=== PATIENT | male | born 1980 | race Caucasian/White ===

== ENCOUNTER 2025-03-06 10:50 | Emergency (ER) | payer OTHER, SELFPAY ==
--- OUTSIDE RECORDS SUMMARY | 2024-01-20 06:05 | XMS_ITS ---
Author Organization [facility] in [place] Address [address] [place] [address] Care Team Providers Care Slip Cover Cutter Name Role Phone MADI RUSSELL MD Primary Care Provider JENNY RUSSELL Unavailable [phone] REASON FOR VISIT drainage from rectum area Medications Medication SIG (Take, Route, Fr equency, Duration) Notes Start Date End Date Status Ketoconazole 2 % 1 application Dethistler Operator ally Twice a day for 14 06/22/2023 Active Cleocin 300 MG 1 capsule Orally QID for 7 06/22/20 23 Active Encounters Encounter Location Date Provider Diagnosis [address] [address] 01/20/2024 JENNY RUSSELL Tinea cruris B35.6 Assessments Encounter Date Diagnosis (ICD Code) Assessment Notes Treatment Notes Treatment Clinical Notes Section Notes 01/20/2024 Tinea cruris (ICD-10 - B35.6) Plan Of Treatment Medication Medication Name Sig Start Date Stop Date Notes Ketoconazole 2 % 1 application Dethistler Operator ally Twice a day for 14 06/22/2023 Cleocin 300 MG 1 capsule Orally QID for 7 06/22/2023 Progress Notes * Jasbir AGUILAR CDOB:[birth year] (43 yo M)Acc No.[id number]:01/20/2024 Patient: Leland Jasbir SANTANA :1980 A ge:43 Y S ex:Male Address:[address] [place] [address] * Refills Refill Cleocin Capsule, 300 MG, Orally, 28 Capsule, 1 capsule, QID, 7 Refill Ketoconazole Cream, 2 %, Externally, 60, 1 application, Twice a day, 14, Refills=11 * true * Date: Generated for Lamont zhao/Nely/Maryitting on: 0 03/06/2025 11:10 AM EDT
--- OUTSIDE RECORDS SUMMARY | 2024-03-07 04:47 | XMS_ITS ---
Author Organization [facility] in [place] Address [address] [place] [address] Care Team Providers Care Drafter (Cad) Electronic Name Role Phone MADI RUSSELL MD Primary Care Provider Madi Russell Unavailable [phone] REASON FOR VISIT ear pain Medications Medication SIG (Take, Route, Frequency, Duration) Notes Start Date End Date Status Ciprofloxacin HCl 500 MG 1 tablet Orally every 12 hrs for 10 days 03/07/2024 Active Encounters Encounter Location Date Provider Diagnosis [facility] [address] [place] [address] 03/07/2024 Madi Russell Plan Of Treatment Medication Medication Name Sig Start Date Stop Date Notes Ciprofloxacin HCl 500 MG 1 tablet Orally every 12 hrs for 10 days 03/07/2024 Progress Notes * Jasbir AGUILAR CDOB:[birth year] (43 yo M)Acc No.[id number]:03/07/2024 Patient: Leland Jasbir SANTANA :1980 A ge:43 Y S ex:Male Address:[address] [place], [place] [id number] * Refills Start Ciprofloxacin HCl Tablet, 500 MG, Orally, 20 Tablet, 1 tablet, every 12 hrs, 10 days * true * Date: Generated for Printi ng/Faxing/eTransmitting on: 0 03/06/2025 11:10 AM EDT
--- OUTSIDE RECORDS SUMMARY | 2024-11-27 04:00 | XMS_ITS ---
Author Organization [facility] es Address [address] [place] [address] Care Team Providers Care Computer Systems Analyst Name Role Phone Reji Cartagena Primary Care Provider [phone] REASON FOR VISIT fu Encounters Encounter Location Date Provider Diagnosis [facility] [address] [place] [address] 11/27/2024 Reji Cartagena Plan Of Treatment No Information Progress Notes * CHARLI RAMEYDOB:[birth year] (44 yo M)Acc No.[id number]:11/27/2024 F/U - Patient Patient: CHARLI PURDY Provider: Lucio Cartagena LPC :1980 A ge:44 Y S ex:Male Date:11/27/2024 Address:[address] [place], [place] [address] Subjective: * Chief Complaints: * 1 . fu. Objective: Therapeutic Interventions: Assessment: Plan: * Images: Care Plan Details* * Electronic signature of Kathleen Cartagena LPC on 03/06/2025 at 11:10 AM EDT Sign off status: Pending * Provider: Lucio Cartagena LPC Date: 0 11/27/2024 Generated for Lamont zhao/Nely/eTransmitting on: 03/06/2025 11:10 AM EDT
[2025-03-06 10:51] VITALS: BP 113/65; PULSE 61; O2SAT 100; BMI 31.8
[2025-03-06 10:55] VITALS: TEMP 36.9
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
--- OUTSIDE RECORDS SUMMARY | 2025-03-06 11:10 | XMS_ITS | Patient Health Record ---
Author Organization [facility] Address [address] [place] [address] Care Team Providers Care Tan Room Supervisor Name Role Phone AgustoKathleen batistaony Primary Care Provider Jordin Ordaz Unavailable Reason For Referral No Information Social History Depression Screening (PHQ-9): Question Answer Notes Little interest or pleasure in doing things Not at all Feeling down, depressed, or hopeless Not at all Trouble falling or staying asleep, or sleeping t oo much Not at all Feeling tired or having little energy Not at all Poor appetite or overeating Not at all Feeling bad about yourself-o r that you are a failure or have let yourself or your family down Not at all Trouble concentrating on thi ngs, such as reading the newspaper or watching television Not at all Moving or speaking so slowly that other people could have noticed. Or the opposite being so fidgety or restless that you have been moving around a lot more than usual Not at all Thoughts that you would be b marcos off , or of hurting yourself in some way Not at all Total Score 0 Problems Problem Type SNOMED Code ICD Code Onset Dates Problem Status W/U Status Risk Notes Problem PTSD (post-traumat ic stress disorder) (F43.10) Active confirmed Encounters Encounter Location Date Provider Diagnosis [facility] [address] [place] [address] 08/06/2024 Reji Cartagena [facility] [address] [place] [address] 08/27/2024 Reji Cartagena [facility] [address] [place] [address] 09/24/2024 Reji Cartagena [facility] [address] [place] [address] 07/10/2024 Reji Cartagena PTSD (post-traumatic stress disorder) F43.10 [facility] [address] [facility] [place] [address] 08/07/2024 Reji Cartagena PTSD (post-traumatic stress disorder) F43.10 [facility] [address] [facility] [place] [address] 08/28/2024 Reji Cartagena PTSD (post-traumatic stress disorder) F43.10 [facility] [address] [facility] [place] [address] 09/25/2024 Reji Cartagena PTSD (post-traumatic stress disorder) F43.10 Assessments Encounter Date Diagnosis (ICD Code) Assessment Notes Treatment Notes Treatment Clinical Notes Section Notes 07/10/2024 PTSD (post-traumatic stress disorder) (ICD-10 - F43.10) 08/07/2024 PTSD (post-traumatic stress disorder) (ICD-10 - F43.10) 08/28/2024 PTSD (post-traumatic stress disorder) (ICD-10 - F43.10) 09/25/2024 PTSD (post-traumatic stress disorder) (ICD-10 - F43.10) Plan Of Treatment No Information Insurance Providers Payer Name Payer Address Payer Phone Subscriber Number Group Number Insured Name Patient Relationship to Insured Coverage Start Date Coverage End Date [employer] [address] [place] [address] [id number] CHARLI RAMEY Self - patient is the insured 4
--- OUTSIDE RECORDS SUMMARY | 2025-03-06 11:10 | XMS_ITS | Clinical Summary ---
Author Organization [facility] Address [address] [place] [address] Care Team Providers Care Project Internship Name Role Phone Unavailable Primary Care Provider Unavailabl e Social History Tobacco Use Types Packs/Day Years Used Date Smoking Tobacco: Never Assessed Sex and Gender Information Value Date Recorded Sex Assigned at Not on file Legal Sex Male 6:58 PM EDT Gender Identity Not on file Sexual Orientation Not on file Last Filed Vital Signs Vital Sign Reading Time Taken Comments Blood Pressure 117/80 06/03/2021 12:00 PM EST Pulse - - Temperature - - Respiratory Rate - - Oxygen Saturation - - Inhaled Oxygen Concentration - - Weight 116 kg (255 lb) 06/03/2021 12:00 PM EST Height 180.3 cm (5' 11 ) 06/03/2021 12:00 PM EST Body Mass Index 35.57 06/03/2021 12:00 PM EST Plan of Treatment Not on file
[2025-03-06] MEDS: LIDOCAINE HCL 1% 100 MG/10 ML MDV 20 ML INJ (11:14)
[2025-03-06] MEDS: DIPHTH,PERTUSS(ACELL),TET VAC 0.5 ML SYRINGE IM (11:14)
--- NOTE | 2025-03-06 11:39 | ED_ITS ---
HPI HPI - General Adult General Chief complaint: Wound/Laceration Stated complaint: LACERATION Time Seen by Provider: 03/06/25 10:53 Source: patient Mode of arrival: ambulance Limitations: no limitations History of Present Illness HPI narrative: 44-year-old male presents to the emergency department for a laceration to his right thigh. This was sustained at work when a heavy piece of metal hit him in this area. No other injury was sustained. It has been more than 10 years since a tetanus shot. No weakness or numbness in his leg. He states the bleeding was minimal. Related Data Allergies Allergy/AdvReac Type Severity Reaction Status Date / Time amoxicillin Allergy Unknown Unknown Verified 03/06/25 10:51 Review of Systems ROS Narrative A ten point review of systems is negative except as noted above. PFSH PFSH Social History Little interest or pleasure in doing things: not at all Feeling down, depressed, or hopeless: not at all Exam Narrative Exam Narrative: Nurses note and vital signs reviewed and patient is not hypoxic. General: The patient appears in no apparent distress. Patient is resting comfortably on cart. Skin: Warm, dry, no pallor noted. There is no rash noted. Head: Normocephalic, atraumatic Eye: Normal conjunctiva, no drainage Ears, Nose, Mouth, and Throat: oral mucosa is moist. Nares patent. Cardiovascular: Regular Rate and Rhythm Respiratory: Patient is in no distress, no accessory muscle use, lungs are clear to auscultation, no wheezing, rales or rhonchi Back: non-tender GI: Soft and nontender Musculoskeletal: There is a curved laceration present on the right distal thigh anteriorly. He is able to raise his foot off the bed without difficulty and he has full range of motion. There is no active bleeding. No other wounds are present. Neurological: A&O, normal speech; motor strength intact in his lower extremities Psychiatric: Cooperative Constitutional Vital Signs, click to edit/add: Last Vital Signs Temp 98.5 F 03/06/25 10:55 Pulse 61 03/06/25 10:51 Resp 18 03/06/25 10:51 BP 113/65 03/06/25 10:51 Pulse Ox 100 03/06/25 10:51 O2 Del Method Room Air 03/06/25 10:51 Course Vital Signs Vital signs: Vital Signs Pulse Rate 61 08/13/25 10:51 Respiratory Rate 18 03/06/25 10:51 Blood Pressure 113/65 03/06/25 10:51 Pulse Oximetry 100 03/06/25 10:51 Oxygen Delivery Method Room Air 03/06/25 10:51 Temperature 98.5 F 03/06/25 10:55 Pulse Rate 61 03/06/25 10:51 Respiratory Rate 18 03/06/25 10:51 Blood Pressure 113/65 03/06/25 10:51 Pulse Oximetry 100 03/06/25 10:51 Oxygen Delivery Method Room Air 03/06/25 10:51 Medical Decision Making MDM Narrative Medical decision making narrative: The following procedure was performed by me. Local infiltration was carried out with 1% lidocaine without epinephrine resulting in complete skin anesthesia. The area was prepped with Betadine x 3 and draped sterilely. A single piece of foreign body was removed and is likely a piece of cloth from his pants. No other foreign body was found. The wound was then closed with nine 4-0 Ethilon simple sutures resulting in good skin reapproximation and complete hemostasis and no complications. He tolerated the procedure well. Sutures are to be removed in 10 days and tetanus status was updated. Young wrap applied, application checked by me and found to be appropriate, he is neurovascu larly intact. Treatment diagnosis and follow-up were discussed with the patient. Differential Diagnosis Differential Diagnosis: Laceration, foreign body Discharge Plan Discharge Chief Complaint: Wound/Laceration Clinical Impression: Laceration of right lower extremity Patient Disposition: Home, Self-Care Time of Disposition Decision: 11:39 Condition: Good Mode of Transportation: Private Vehicle Print Language: Icelandic Instructions: Laceration (ED) Additional Instructions: She is to be removed in 10 days. Use Young wrap until sutures are removed. Referrals: Jose Martinez MD [Primary Care Provider, Family Practice] - 1 week
== END 2025-03-06 11:57 | disposition home or self-care (01) ==
PROVIDERS: Emergency Provider Emergency Medicine; PCP Family Medicine
DX: S71.111A Laceration without foreign body, right thigh, initial encounter (principal); Z23 Encounter for immunization
CPT/HCPCS: 90471; 99284